=== PATIENT | female | born 1995 | race Caucasian/White ===

== ENCOUNTER → 2018-03-07 | Outpatient (CLI) | payer OTHER | LOC: M LRY 08:53 | DX: M22.2X9 Patellofemoral disorders, unspecified knee (principal) | CPT/HCPCS: 73564 ==

== ENCOUNTER → 2018-08-13 | Outpatient (REF) | payer OTHER ==
[2018-08-17 15:32] LABS: HPV HYBRID CAPTURE II Positive (Negative)
== END ==
LOC: M SFHCLERA 10:00
PROVIDERS: ATTEND Family Medicine
DX: Z12.4 Encounter for screening for malignant neoplasm of cervix (principal); R87.610 Atypical squamous cells of undetermined significance on cytologic smear of cervix (ASC-US)
CPT/HCPCS: 87624; G0123

== ENCOUNTER → 2019-01-22 | Outpatient (CLI) | payer OTHER ==
[2019-01-22 13:28] LABS: BASO % 0.5 % (0.0-1.0); EOS % 0.3 % (0.0-3.0); HEMATOCRIT 37.9 % (36.0-47.0); HEMOGLOBIN 12.7 g/dl (12.0-15.5); LYMPH # 1.2 10^3/uL (1.5-6.5); LYMPH % 18.8 % (24.0-44.0); MEAN CORPUSCULAR HEMOGLOBIN 29.5 pg (27.0-33.0); MEAN CORPUSCULAR HGB CONC 33.5 g/dl (32.0-36.5); MEAN CORPUSCULAR VOLUME 88.1 fl (80.0-96.0); MONO # 0.5 10^3/uL (0.0-0.8); MONO % 7.7 % (0.0-5.0); NEUTROPHILS # 4.5 10^3/uL (1.8-7.7); NEUTROPHILS % 72.5 % (36.0-66.0); PLATELET COUNT, AUTOMATED 246 10^3/uL (150-450); WHITE BLOOD COUNT 6.2 10^3/uL (4.0-10.0)
[2019-01-22 14:17] LABS: HEPATITIS C VIRUS ABY INDEX 0.1 INDEX (<0.8); HIV 1&2 SCREEN CENTAUR NEGATIVE (NEGATIVE); RUBELLA IgG QUALITATIVE IMMUNE (IMMUNE)
[2019-01-22 14:44] LABS: CHLAMYDIA DNA AMPLIFICATION NEGATIVE (NEGATIVE); GC DNA AMPLIFICATION NEGATIVE (NEGATIVE)
== END ==
LOC: M SMT 09:15
PROVIDERS: ATTEND Advanced Practice Midwife
DX: Z34.00 Encounter for supervision of normal first pregnancy, unspecified trimester (principal); Z3A.10 10 weeks gestation of pregnancy

== ENCOUNTER → 2019-02-20 | Outpatient (CLI) | payer OTHER | LOC: M SMT 09:35 | PROVIDERS: ATTEND Advanced Practice Midwife | DX: Z13.79 Encounter for other screening for genetic and chromosomal anomalies (principal) ==

== ENCOUNTER → 2019-03-21 | Outpatient (REF) | payer OTHER ==
[~2019-03-21] MED LIST: ACET-683 PO; IBUP80TA PO; PRENTAB9 PO; UNIS25TA3 PO; URSO300C3 PO; ZOFR4TAB16 PO
== END ==
LOC: M LAB REF 17:00
PROVIDERS: ATTEND Advanced Practice Midwife
DX: Z34.82 Encounter for supervision of other normal pregnancy, second trimester (principal)

== ENCOUNTER → 2019-03-25 | Outpatient (CLI) | payer OTHER ==
--- NOTE | 2019-03-25 09:17 | REP ---
Clinical: Anatomical evaluation. Comparison: None . Findings: Examination demonstrates a single live intrauterine in breech presentation. motion is identified by technologist. Placenta is noted anterior/right lateral and grade zero without evidence for placenta previa or abruption. Amniotic fluid volume is normal. Cervix measures 3.8 cm in length and appears closed. No evidence for nuchal cord. Gestational age by LMP 19 weeks 0 days with JULY 08/19/2019 . Gestational age by current measurements 19 weeks 3 days with JULY 08/16/2019 . FHR equals 150 beats per minute. BPD 4.4 cm 19 weeks 3 days HC 16.8 cm 19 weeks 3 days AC 14.2 cm 19 weeks 4 days FL 2.9 cm 19 weeks 0 days HL 2.9 cm 19 weeks 4 days HC/AC ratio 1.18 Estimated weight 287 grams ( 60th percentile). Anatomical assessment demonstrates normal structures including cranium, choroid plexus, cavum, cerebellum/posterior fossa, facial features, lungs, four-chamber heart/ventricular outflow tracts, diaphragm, stomach, cord insertion/three-vessel cord, kidneys/bladder, spine, and extremities. Impression: Single live intrauterine in breech presentation demonstrating appropriate interval growth. Anatomical assessment is complete and normal. No gross abnormalities are identified. Electronically Signed by Edward Johnson MD 03/25/2019 09:08 A
== END ==
LOC: M RAD 08:19
PROVIDERS: ATTEND Advanced Practice Midwife
DX: Z34.82 Encounter for supervision of other normal pregnancy, second trimester (principal)

== ENCOUNTER → 2019-04-03 | Outpatient (CLI) | payer OTHER ==
[2019-04-03 10:28] LABS: ALBUMIN 3.2 GM/DL (3.2-5.2); ALT/SGPT 134 U/L (12-78); AMYLASE 35 U/L (25-115); BILIRUBIN,DIRECT 0.3 MG/DL (0.0-0.2); BILIRUBIN,TOTAL 0.6 MG/DL (0.2-1.0); LIPASE 73 U/L (73-393); TOTAL PROTEIN 6.6 GM/DL (6.4-8.2)
[2019-04-07 10:43] LABS: HEPATITIS B SURFACE ANTIGEN NEGATIVE (NEGATIVE)
[2019-04-07 11:11] LABS: HEPATITIS B CORE ANTIBODY IGM NEGATIVE (NEGATIVE)
[2019-04-07 11:13] LABS: HEPATITIS A ANTIBODY IGM NEGATIVE (NEGATIVE)
== END ==
LOC: M SMT 08:43
PROVIDERS: ATTEND Advanced Practice Midwife
DX: O26.892 Other specified pregnancy related conditions, second trimester (principal)

== ENCOUNTER → 2019-05-21 | Outpatient (CLI) | payer OTHER ==
[2019-05-21 10:07] LABS: HEMOGLOBIN 10.6 g/dl (12.0-15.5); MEAN CORPUSCULAR HEMOGLOBIN 30.1 pg (27.0-33.0); MEAN CORPUSCULAR HGB CONC 33.1 g/dl (32.0-36.5); MEAN CORPUSCULAR VOLUME 90.9 fl (80.0-96.0); PLATELET COUNT, AUTOMATED 193 10^3/uL (150-450); RED BLOOD COUNT 3.52 10^6/uL (4.00-5.40); WHITE BLOOD COUNT 6.7 10^3/uL (4.0-10.0)
== END ==
LOC: M LAB 08:20
PROVIDERS: ATTEND Advanced Practice Midwife
DX: Z34.02 Encounter for supervision of normal first pregnancy, second trimester (principal); Z3A.00 Weeks of gestation of pregnancy not specified

== ENCOUNTER → 2019-06-10 | Outpatient (CLI) | payer OTHER | LOC: M LAB 07:55 | PROVIDERS: ATTEND Obstetrics & Gynecology | DX: O99.612 Diseases of the digestive system complicating pregnancy, second trimester (principal); Z3A.27 27 weeks gestation of pregnancy ==

== ENCOUNTER → 2019-06-25 | Outpatient (CLI) | payer OTHER | LOC: M PLALAB 12:54 | PROVIDERS: ATTEND Obstetrics & Gynecology | DX: O99.613 Diseases of the digestive system complicating pregnancy, third trimester (principal); Z3A.00 Weeks of gestation of pregnancy not specified ==

== ENCOUNTER → 2019-06-26 | Outpatient (CLI) | payer OTHER ==
--- NOTE | 2019-06-26 11:53 | REP ---
Clinical: Growth evaluation. Comparison: 03/25/2019 . Findings: Examination demonstrates a single live intrauterine in cephalic presentation. motion is identified by technologist. Placenta is noted anterior and grade I without evidence for placenta previa or abruption. Amniotic fluid volume is normal. Cervix measures 4.3 cm in length and appears closed. No evidence for nuchal cord. Gestational age by LMP 32 weeks 2 days with JULY 08/19/2019 . Gestational age by current measurements 34 weeks 0 days with JULY 08/07/2019 . FHR equals 149 beats per minute. BPD 8.6 cm 34 weeks 5 days HC 30.3 cm 33 weeks 4 days AC 29.8 cm 33 weeks 6 days FL 6.6 cm 34 weeks 1 day HL 5.8 cm 33 weeks 4 days HC/AC ratio 1.01 Estimated weight 2316 grams ( 78th percentile). Amniotic fluid index: 16.4 cm (8.5 - 24.3) Umbilical cord SD ratio: 2.57 (2.35 - 3.35) Impression: A live intrauterine in cephalic presentation demonstrating appropriate interval growth. No gross abnormalities are identified. Electronically Signed by Edward Johnson MD 06/26/2019 11:45 A
== END ==
LOC: M RAD 10:33
PROVIDERS: ATTEND Obstetrics & Gynecology
DX: O99.613 Diseases of the digestive system complicating pregnancy, third trimester (principal); Z3A.32 32 weeks gestation of pregnancy

== ENCOUNTER 2019-07-12 15:57 | Outpatient (CLI) | payer OTHER ==
[~2019-07-12] VITALS: Ht 167.6 cm; Wt 80.8 kg
[2019-07-12 16:16] VITALS: BP 112/57
[2019-07-12] MEDS ORDERED: LACTATED RINGER'S 1000 ML IV STA (16:42)
[2019-07-12 16:58] VITALS: BP 107/56
[2019-07-12 17:09] LABS: HEMATOCRIT 33.8 % (36.0-47.0); HEMOGLOBIN 10.8 g/dl (12.0-15.5); MEAN CORPUSCULAR HEMOGLOBIN 28.2 pg (27.0-33.0); MEAN CORPUSCULAR VOLUME 88.3 fl (80.0-96.0); PLATELET COUNT, AUTOMATED 208 10^3/uL (150-450); RED BLOOD COUNT 3.83 10^6/uL (4.00-5.40)
[2019-07-12] MEDS ORDERED: PRENTAB9 PO (17:11)
[2019-07-12] MEDS ORDERED: ZOFR4TAB16 PO (17:11)
[2019-07-12] MEDS ORDERED: URSO300C3 PO (17:11)
[2019-07-12] MEDS ORDERED: PROMETHAZINE INJ 25 MG/ML VIAL (J2550) IV ONE (17:15)
[2019-07-12 17:33] LABS: ALBUMIN 2.6 GM/DL (3.2-5.2); ALT/SGPT 23 U/L (12-78); AMYLASE 45 U/L (25-115); BILIRUBIN,TOTAL 0.6 MG/DL (0.2-1.0); BLOOD UREA NITROGEN 15 MG/DL (7-18); CALCIUM LEVEL 8.1 MG/DL (8.5-10.1); CARBON DIOXIDE LEVEL 19 MEQ/L (21-32); CHLORIDE LEVEL 109 MEQ/L (98-107); CREATININE FOR GFR 0.64 MG/DL (0.55-1.30); GLOMERULAR FILTRATION RATE > 60.0 (>60); GLUCOSE, FASTING 75 MG/DL (70-100); LIPASE 61 U/L (73-393); POTASSIUM SERUM 3.9 MEQ/L (3.5-5.1); SODIUM LEVEL 139 MEQ/L (136-145); TOTAL PROTEIN 6.2 GM/DL (6.4-8.2)
[2019-07-12] MEDS: LR 1,000 ML IV SCH (17:51)
[2019-07-12 18:24] VITALS: BP 106/57
[2019-07-12] MEDS ORDERED: ACETAMINOPHEN 500 MG TAB PO PRN (18:30)
[2019-07-12] MEDS ORDERED: LR 1,000 ML IV ONE (19:15)
[2019-07-12 19:40] LABS: APPEARANCE, URINE HAZY (CLEAR); BACTERIA, URINE AUTO NEGATIVE (NEGATIVE); BILIRUBIN, URINE AUTO NEGATIVE (NEGATIVE); BLOOD, URINE BLOOD NEGATIVE (NEGATIVE); COLOR, URINE YELLOW (YELLOW); GLUCOSE, URINE (UA) AUTO NEGATIVE (NEGATIVE); KETONE, URINE AUTO 2+ mg/dL (NEGATIVE); LEUKOCYTE ESTERASE, URINE AUTO NEGATIVE (NEGATIVE); MUCUS, URINE SMALL (NEGATIVE); NITRITE, URINE AUTO NEGATIVE (NEGATIVE); PROTEIN, URINE AUTO 1+ mg/dL (NEGATIVE); RBC, URINE AUTO 1 /HPF (0-3); SQUAMOUS EPITHELIAL CELL UR AU 1 /HPF (0-6); UROBILINOGEN, URINE AUTO 0.2 mg/dL (0.0-2.0); WBC, URINE AUTO 1 /HPF (0-3)
[2019-07-12 19:56] LABS: INFLUENZA A AMPLIFICATION NEGATIVE (NEGATIVE); INFLUENZA B AMPLIFICATION NEGATIVE (NEGATIVE)
[2019-07-12 21:31] VITALS: BP 92/50
[2019-07-13] MEDS ORDERED: PROMETHAZINE INJ 25 MG/ML VIAL (J2550) IV ONE
[2019-07-13] MEDS: LR 1,000 ML IV SCH (00:08)
[2019-07-13 07:29] VITALS: BP 114/57
[2019-07-13 07:37] LABS: HEMATOCRIT 27.2 % (36.0-47.0); HEMOGLOBIN 8.9 g/dl (12.0-15.5); MEAN CORPUSCULAR HEMOGLOBIN 28.6 pg (27.0-33.0); MEAN CORPUSCULAR HGB CONC 32.7 g/dl (32.0-36.5); MEAN CORPUSCULAR VOLUME 87.5 fl (80.0-96.0); PLATELET COUNT, AUTOMATED 166 10^3/uL (150-450); RED BLOOD COUNT 3.11 10^6/uL (4.00-5.40); WHITE BLOOD COUNT 8.7 10^3/uL (4.0-10.0)
[2019-07-13] MEDS ORDERED: LACTATED RINGER'S 1000 ML IV STA (09:18)
[2019-07-13 10:10] VITALS: BP 120/57
[2019-07-13] MEDS ORDERED: METOCLOPRAMIDE INJ 10MG/2ML VIAL (J2765) IV PRN (11:00)
[2019-07-13 11:43] VITALS: BP 121/71
== END 2019-07-13 13:40 | disposition home or self-care (01) ==
LOC: M LDO 15:57
PROVIDERS: ATTEND Obstetrics & Gynecology
DX: O21.2 Late vomiting of pregnancy (principal); O98.813 Other maternal infectious and parasitic diseases complicating pregnancy, third trimester; Z3A.34 34 weeks gestation of pregnancy
CPT/HCPCS: 36415; 59025; 76815; 80053; 81001; 82150; 83690; 85027; 87086; 87502; 96360; 96361; 96374; 96376; G0378; G0463

== ENCOUNTER → 2019-07-22 | Outpatient (REF) | payer OTHER ==
[~2019-07-22] MED LIST changes: -ACET-683 PO; -IBUP80TA PO; -UNIS25TA3 PO
== END ==
LOC: M SFHCWAGY 12:57
PROVIDERS: ATTEND Obstetrics & Gynecology
DX: O99.613 Diseases of the digestive system complicating pregnancy, third trimester (principal)

== ENCOUNTER 2019-08-02 10:43 | Inpatient (IN) | payer OTHER ==
[~2019-08-02] VITALS: Ht 167.6 cm; Wt 96.0 kg
[2019-08-02] VITALS (8 sets, daily range): BP systolic 114–138; BP diastolic 61–94
[2019-08-02] MEDS ORDERED: UNIS25TA3 PO (10:53)
[2019-08-02] MEDS: miSOPROStol 50 MCG 1/2 TAB (S0191) SL SCH ×3 (12:01→20:34)
[2019-08-02 12:07] LABS: HEMATOCRIT 30.7 % (36.0-47.0); HEMOGLOBIN 9.9 g/dl (12.0-15.5); MEAN CORPUSCULAR HEMOGLOBIN 27.5 pg (27.0-33.0); MEAN CORPUSCULAR HGB CONC 32.2 g/dl (32.0-36.5); MEAN CORPUSCULAR VOLUME 85.3 fl (80.0-96.0); PLATELET COUNT, AUTOMATED 211 10^3/uL (150-450); WHITE BLOOD COUNT 7.3 10^3/uL (4.0-10.0)
--- NOTE | 2019-08-02 14:54 | HPE ---
DATE OF ADMISSION: 08/02/2019 23-year-old, 1, para 0 female at 37 and 4/7 weeks gestation by last menstrual period and consistent with 10-week ultrasound, estimated date of confinement (EDC) of 08/19/2019, presents for labor induction with the indication of cholestasis of . Her itching is moderate, but has improved of late. She has contractions that she perceives as being mild cramping. She denies bleeding. There is good movement. COURSE: The patient initiated care at 10 weeks gestation on 01/22/2019. Her first trimester blood pressure is 122/68, weight 193 pounds. She was diagnosed with cholestasis at 20 weeks gestation with elevated bile level of 11.8. She had severe itching at that time. She was started on Ursodiol 300 mg three times a day. Her liver function tests were mildly elevated at that time, including AST and ALT. MEDICAL HISTORY: 1. Alopecia. SURGICAL HISTORY: 1. [place] teeth removal in 2011. ALLERGIES: None. SOCIAL HISTORY: The patient lives on [address] with her . She denies cigarettes, alcohol or drug use during . FAMILY HISTORY: Noncontributory. PHYSICAL EXAMINATION: Blood pressure 119/76, pulse 127, respiratory rate 18, temperature 97.9. She is in no apparent distress. HEAD/NECK: Normal. LUNGS: Clear. HEART: Regular rate and rhythm. Nontender. Gravid. heart tones category 1. Contractions every 1 to 3 minutes, mild. Sterile vaginal examination: 2 cm, 70%, -2, posterior, soft, vertex. EXTREMITIES: Nontender. LABORATORIES: Blood type A positive, Rubella immune, RPR nonreactive. Group B streptococcus (GBS) negative. ASSESSMENT: 23-year-old 1 at 37 and 4 with cholestasis of who presents for labor induction. PLAN: The patient is admitted on 08/02/2019. Risks of induction were discussed.
[2019-08-02] MEDS ORDERED: BUTORPHANOL 2 MG/ML INJ (J0595) IV ONE (20:30)
[2019-08-02] MEDS ORDERED: PROMETHAZINE INJ 25 MG/ML VIAL (J2550) IV ONE (20:30)
[2019-08-03] VITALS (35 sets, daily range): BP systolic 103–130; BP diastolic 53–81
[2019-08-03] MEDS: miSOPROStol 50 MCG 1/2 TAB (S0191) SL SCH (03:55)
[2019-08-03] MEDS ORDERED: OXYTOCIN DRIP 30 UNITS in IV 1 EA IV SCH (05:45)
[2019-08-03] MEDS: LR 1,000 ML IV SCH ×2 (09:16→12:03)
[2019-08-03] MEDS ORDERED: FENTANYL 2MCG/ML ROPIVACAINE 0.2% IN 0.9% NACL 100ML IVBAG As Ordered ONE (12:14)
[2019-08-03] MEDS ORDERED: ePHEDrine SULFATE 25 MG/5 ML(5MG/ML) SYRINGE IV PRN (13:30)
[2019-08-03] MEDS ORDERED: EPIDURAL/PCA KEYS XX PRN (13:30)
[2019-08-03] MEDS ORDERED: REFRIGERATOR IV KEYS XX PRN (13:30)
[2019-08-03] MEDS ORDERED: FENTANYL/ROPIVACAINE/NACL BAG 100 ML EPIDURAL SCH (13:30)
[2019-08-03] MEDS ORDERED: ONDANSETRON 4MG/2ML VIAL (J2405) IV PRN (13:30)
[2019-08-03] MEDS ORDERED: LACTATED RINGER'S 1000 ML IV PRN (13:30)
[2019-08-03] MEDS ORDERED: diphenhydrAMINE INJ 50MG/ML VIAL (J1200) IV PRN (13:30)
[2019-08-03] MEDS ORDERED: EPIDURAL COMMENT XX SCH (13:30)
[2019-08-03] MEDS ORDERED: NALOXONE INJ 0.4 MG/1 ML VIAL (J2310) IV PRN (13:30)
[2019-08-04] MEDS ORDERED: IBUPROFEN 600 MG TAB PO PRN (00:30)
[2019-08-04] MEDS ORDERED: DOCUSATE SODIUM 100 MG CAP PO PRN (00:30)
[2019-08-04] MEDS ORDERED: OXYTOCIN DRIP 30 UNITS in IV 1 EA IV ONE (00:30)
[2019-08-04] MEDS ORDERED: ACETAMINOPHEN TAB 650MG DOSE (2X325MG) PO PRN (00:30)
[2019-08-04] MEDS ORDERED: ONDANSETRON 4MG/2ML VIAL (J2405) IV PRN (00:30)
[2019-08-04] MEDS ORDERED: MEASLES,MUMPS,RUBELLA VACCINE INJ (MMR-II) (90707) SC SCH (00:30)
[2019-08-04] MEDS ORDERED: DIBUCAINE 1% OINTMENT 30GM TOP PRN (00:30)
[2019-08-04] MEDS ORDERED: METHYLERGONOVINE MALEATE 0.2 MG TAB PO PRN (00:30)
[2019-08-04] MEDS ORDERED: RHOGAM 300 MCG (1500 IU) INJ (J2790) IM SCH (00:30)
[2019-08-04] MEDS: ACETAMINOPHEN 500 MG TAB PO PRN ×3 (01:20→18:17)
[2019-08-04 03:23] VITALS: BP 96/52
[2019-08-04] MEDS: IBUPROFEN 800 MG TAB PO PRN ×2 (04:31→12:51)
[2019-08-04 06:00] VITALS: BP 122/61
[2019-08-04] MEDS: PRENATAL VITAMINS CHEWABLE TABLET PO SCH (09:40)
[2019-08-04 18:16] VITALS: BP 116/60
--- NOTE | 2019-08-04 19:35 | DN ---
DATE OF DELIVERY: 08/03/2019 PREDELIVERY DIAGNOSES: 37 and 5/7 weeks gestation, cholestasis of , labor induction. POSTDELIVERY DIAGNOSIS: Delivered. PROCEDURE: Spontaneous vaginal delivery. ONLINE COMMUNITY MANAGER: Deshaun Menezes MD ANESTHESIA: Epidural. ESTIMATED BLOOD LOSS: 300 mL. FINDINGS: 7 pound 15 ounce male . scores 8 and 9. DELIVERY SUMMARY: After a 90 minute second stage, the patient had spontaneous delivery of a 7 pound 15 ounce male infant, scores 8 and 9, under epidural anesthesia. There was no nuchal cord. The shoulders delivered with ease. The was handed to the mother and cried immediately. The cord was doubly clamped and cut. The placenta delivered spontaneously and appeared to be intact. The patient received IV Pitocin immediately after delivery of the placenta. There were no vaginal lacerations present. Sponge counts were correct.
[2019-08-05] MEDS: IBUPROFEN 800 MG TAB PO PRN (00:06)
[2019-08-05 06:00] VITALS: BP 99/50
[2019-08-05] MEDS ORDERED: IBUP80TA PO (07:57)
[2019-08-05] MEDS ORDERED: ACET-683 PO (07:57)
[2019-08-05] MEDS: PRENATAL VITAMINS CHEWABLE TABLET PO SCH (09:02)
[2019-08-05] MEDS: ACETAMINOPHEN 500 MG TAB PO PRN (11:33)
== END 2019-08-05 14:53 | disposition home or self-care (01) | DRG 807 ==
LOC: M LDI 10:43 → M OBS 08-04 03:11
PROVIDERS: ADMIT Specialist; ATTEND Specialist
PROC: 10E0XZZ Delivery of Products of Conception, External Approach (ICD-10-PCS; principal; 2019-08-03)
DX: O99.62 Diseases of the digestive system complicating childbirth (principal); Z37.0 Single live birth; Z3A.37 37 weeks gestation of pregnancy; K80.20 Calculus of gallbladder without cholecystitis without obstruction

== ENCOUNTER → 2019-10-01 | Outpatient (REF) | payer OTHER ==
[~2019-10-01] MED LIST changes: +ACET-683 PO; +IBUP80TA PO; +UNIS25TA3 PO
== END ==
LOC: M SFHCLERA 15:03
PROVIDERS: ATTEND Physician Assistant
DX: J02.9 Acute pharyngitis, unspecified (principal)

== ENCOUNTER → 2019-11-18 | Outpatient (CLI) | payer OTHER | LOC: M LABSMTC 09:28 | PROVIDERS: ATTEND Anesthesiology | DX: Z01.818 Encounter for other preprocedural examination (principal); Z11.59 Encounter for screening for other viral diseases ==

== ENCOUNTER 2019-11-21 07:35 | Day surgery (SDC) | payer OTHER ==
[~2019-11-21] VITALS: Ht 170.2 cm; Wt 90.3 kg
[~2019-11-21 07:35] MED LIST changes: +LIDOCAINE 1% MDV 20ML VIAL SQ PRN; +LR 1,000 ML IV ONE
[2019-11-21] MEDS ORDERED: propofoL 200 MG/20 ML VIAL As Ordered ONE (08:04)
[2019-11-21] MEDS ORDERED: ROCURONIUM BROMIDE 50 MG/5 ML VIAL As Ordered ONE (08:04)
[2019-11-21] MEDS ORDERED: dexameTHASONE 4 MG/ML 1ML VIAL (J1100 PER 1MG) As Ordered ONE (08:04)
[2019-11-21] MEDS ORDERED: LIDOCAINE 2% 100MG/5ML SDV (FOR ANES.) As Ordered ONE (08:04)
[2019-11-21] MEDS ORDERED: ONDANSETRON 4MG/2ML VIAL As Ordered ONE (08:04)
[2019-11-21] MEDS ORDERED: MIDAZOLAM INJ 2MG/2ML VIAL (J2250 PER 1MG) As Ordered ONE (08:05)
[2019-11-21] MEDS ORDERED: fentaNYL 250 MCG/5 ML INJECTION (J3010) As Ordered ONE (08:05)
[2019-11-21] MEDS ORDERED: BUPIVACAINE HCL 0.25% 30ML VIAL As Ordered ONE (09:09)
[2019-11-21] MEDS ORDERED: BUPIVACAINE/EPIN 0.25% 30 ML VIAL As Ordered ONE (09:10)
[2019-11-21] MEDS ORDERED: ACETAMINOPHEN 1000MG 100ML IV BTL (OFIRMEV) (J0131 PER 10MG) As Ordered ONE (09:50)
[2019-11-21] MEDS ORDERED: SUGAMMADEX SODIUM 500 MG/5 ML VIAL (BRIDION) As Ordered ONE (09:51)
[2019-11-21] MEDS ORDERED: KETOROLAC 60 MG/2 ML VIAL As Ordered ONE (09:51)
[2019-11-21] MEDS ORDERED: fentaNYL 100 MCG/2 ML INJECTION (J3010) As Ordered ONE (10:44)
[2019-11-21] MEDS: fentaNYL 100 MCG/2 ML INJECTION (J3010) IV PRN ×4 (10:48→11:11)
[2019-11-21] MEDS ORDERED: LR 1,000 ML IV SCH (11:00)
[2019-11-21] MEDS ORDERED: ONDANSETRON 4MG/2ML VIAL IV PRN (11:00)
[2019-11-21] MEDS ORDERED: oxyCODONE 5MG TAB PO PRN (11:00)
[2019-11-21 12:43] VITALS: BP 114/68
--- NOTE | 2019-11-25 16:03 | RO ---
DATE OF PROCEDURE: 11/21/2019 PREOPERATIVE DIAGNOSIS: Symptomatic cholelithiasis. POSTOPERATIVE DIAGNOSIS: Symptomatic cholelithiasis. PROCEDURE: Robotic cholecystectomy. SURGEON: Dr. Mike Valladares CAFETERIA TABLE ATTENDANT: Tati Ingram ANESTHESIA: General. ESTIMATED BLOOD LOSS: 5 mL. COMPLICATIONS: None. INDICATIONS FOR PROCEDURE: The patient is a 24-year-old female who presents with symptomatic cholelithiasis. Recommendation was to proceed with robotic cholecystectomy. Risks and benefits of procedure not limited to but including bleeding, infection, hernia formation, damage to surrounding structures and need for further surgery were discussed in detail with the patient. Informed consent was obtained and procedure was planned. DESCRIPTION OF PROCEDURE: The patient was brought back to operating room seven, after sufficient sedation, the abdomen was sterilely prepped and draped. Next, a time-out was done to confirm proper patient, proper procedure. Following that, 8 mm incision made in left upper quadrant, Veress needle inserted and the abdomen was insufflated 15 mmHg. Veress needle was removed and an 8 mm Optiview robotic port was then placed. Once the abdomen was entered, three more ports were placed across the mid abdomen towards the right upper quadrant. The fundus of the gallbladder was then elevated up towards the right shoulder. Cystic duct and cystic artery were dissected free using a combination of blunt and sharp dissection. Once they were both clearly identified, they were both doubly clipped and cut. Gallbladder was then dissected free from the gallbladder fossa and brought out through the most lateral port site on the right through a 5 mm EndoCatch bag. Once the gallbladder was removed, the peritoneum and the fascia at the lateral site was closed using a running #2-0 V-Loc suture. Once that was completed, the abdomen was desufflated. Skin incisions were closed with #4-0 Vicryl subcuticular sutures. The abdomen was cleaned and dried. Steri-Strips, 4x4, and tape were applied thus ending procedure.
== END 2019-11-21 12:55 | disposition home or self-care (01) ==
LOC: M SDC 07:35
PROVIDERS: ATTEND Surgery
DX: K80.10 Calculus of gallbladder with chronic cholecystitis without obstruction (principal); K21.9 Gastro-esophageal reflux disease without esophagitis; F41.9 Anxiety disorder, unspecified; F32.9 Major depressive disorder, single episode, unspecified; G43.909 Migraine, unspecified, not intractable, without status migrainosus; Z79.899 Other long term (current) drug therapy
CPT/HCPCS: 47562; 81025; 88304; J0131; J1100; J1885; J2405; J3010